=== PATIENT | male | born 2000 | race Two or more races ===

== ENCOUNTER 2020-04-22 13:16 | Emergency (ER) | payer BC ==
[~2020-04-22] VITALS: Ht 185.4 cm; Wt 81.6 kg
[2020-04-22 13:16] VITALS: BP 100/65
[2020-04-22] MEDS ORDERED: KETOROLAC TROMETHAMINE INJ 30 MG/ML VIAL IM ONE (14:30)
[2020-04-22] MEDS ORDERED: KETOROLAC TROMETHAMINE 15 MG/ML VIAL ONE (14:59)
--- NOTE | 2020-04-22 15:23 | NUR ---
Patient discharged to home in stable condition. Written and verbal after care instructions given. Patient verbalizes understanding of instruction. Pt ambulatory with a steady gait
== END 2020-04-22 15:24 | disposition home or self-care (01) ==
LOC: ER 13:21
DX: R07.81 Pleurodynia (principal)
CPT/HCPCS: 71045; 99283; J1885